=== PATIENT | female | born 1990 | race Caucasian/White ===

== ENCOUNTER 2019-10-21 10:27 | Emergency (ER) | payer OTHER ==
[2019-10-21 11:31] VITALS: BP 128/80
--- NOTE | 2019-10-21 12:27 | UC ---
Back Pain HPI - HPI Summary HPI Summary: Slipped on ice this morning today 0400 and fell forward pulling a back muscle. She has pain when she sits but not when she stands. can walk normally but has pain w/ certain movements. denies tingling numbness. Pain is mostly at lower mid to left side of back. . Took arnica and aspirin today 0700 w/ some pain relief. Pain worse w/ bending forward and sitting down. - History of Current Complaint Chief Complaint: UCBackPain Stated Complaint: SP FALL-BACK PAIN Time Seen by Provider: 10/21/19 12:26 Hx Obtained From: Patient Hx Last Menstrual Period: 10/11/19 Onset/Duration: Sudden Onset Pain Intensity: 2 Pain Scale Used: 0-10 Numeric Character: Spasmodic Aggravating Factor(s): Movement Alleviating Factor(s): Rest - Allergies/Home Medications Allergies/Adverse Reactions: Allergies Allergy/AdvReac Type Severity Reaction Status Date / Time Penicillins Allergy Rash Verified 10/21/19 11:26 Home Medications: Home Medications Cyclobenzaprine (NF) [Cyclobenzaprine 5 MG (NF)] 5 mg PO TID PRN 5 Days #15 tab 10/21/19 [Rx] PMH/Surg Hx/FS Hx/Imm Hx - Additional Past Medical History Additional PMH: no chronic illness Previously Healthy: Yes - Surgical History Surgical History: None - Family History Known Family History: Positive: Non-Contributory - Social History Alcohol Use: Rare Substance Use Type: None Smoking Status (MU): Never Smoked Tobacco Review of Systems All Other Systems Reviewed And Are Negative: Yes Skin: Negative: Bruising Respiratory: Negative: Shortness Of Breath Motor: Positive: Decreased ROM. Negative: Weakness Musculoskeletal: Positive: Arthralgia - lower back pain. Negative: Edema Neurological/Mental Status: Negative: Paresthesia, Numbness Physical Exam Triage Information Reviewed: Yes Appearance: Well-Appearing Vital Signs: Initial Vital Signs Temp 97.8 F 10/21/19 11:26 Pulse 84 10/21/19 11:26 Resp 16 10/21/19 11:26 BP 128/80 10/21/19 11:26 Pulse Ox 100 10/21/19 11:26 Vital Signs Reviewed: Yes Respiratory: Positive: No respiratory distress Musculoskeletal: Positive: Strength Intact, ROM Intact - but not without pain., Other: - able to walk normally, stand normally, and take her coat off with no help. Neurological: Positive: Alert, Muscle Tone Normal Skin: Positive: Other - +early bruise forming at mid of Left lower back Back Pain Course/Dx - Course Course Of Treatment: Muscle spasming and bruising after fall this early AM. No neuro deficits. She can cont. her otc meds , alternate w/ heat/ice, and I will add muscle relaxer for now. gave her red flags of when to go to ED. vitals good. - Differential Dx/Diagnosis Differential Diagnosis/HQI/PQRI: Fracture, Herniated Disc, Strain, Sprain, Other Provider Diagnosis: Back spasm, Fall Discharge ED - Sign-Out/Discharge Documenting (check all that apply): Patient Departure All imaging exams completed and their final reports reviewed: No Studies - Discharge Plan Condition: Good Disposition: HOME Prescriptions: Cyclobenzaprine (NF) [Cyclobenzaprine 5 MG (NF)] 5 mg PO TID PRN 5 Days #15 tab PRN Reason: Spasms Patient Education Materials: Fall Prevention (ED) Forms: *Work Release Referrals: No Primary Care Phys,NOPCP [Primary Care Provider] - Additional Instructions: If worsening please follow up with your pcp - Billing Disposition and Condition Condition: GOOD Disposition: Home - Attestation Statements Provider Attestation: Chart has been reviewed. I did not see the patient but was available for consult. [email or web address].
== END 2019-10-21 12:40 | disposition home or self-care (01) ==
LOC: UCCORT 10:27
DX: M62.830 Muscle spasm of back (principal); Z88.0 Allergy status to penicillin; W19.XXXA Unspecified fall, initial encounter; Y92.9 Unspecified place or not applicable
CPT/HCPCS: 99202; G0463